=== PATIENT | male | born 1975 | race Caucasian/White ===

== ENCOUNTER 2020-04-27 11:19 | Emergency (ER) | payer OTHER, MEDICAID ==
[~2020-04-27] VITALS: Ht 182.9 cm; Wt 190.5 kg
[~2020-04-27 11:19] MED LIST: HYDROCODONE-AP1 EAC6 PO; NEURONTIN 300300 M1 PO; NORCO 5-325 TA1 EAC1 PO; PRINIVIL20 MG PO; PROZAC20 MG PO; WELLBUTRIN XL300 MG PO; ZOFRAN4 MG PO
[2020-04-27 11:58] LABS: ABSOLUTE BASOPHILS 0.1 thou/uL (0.0-0.2); ABSOLUTE EOSINOPHILS 0.1 thou/uL (0.0-0.7); ABSOLUTE MONOCYTES 0.6 thou/uL (0.0-1.2); ABSOLUTE NEUTROPHILS 5.3 thou/uL (1.6-8.1); BASOPHILS 0.9 %; EOSINOPHILS 1.2 %; HEMATOCRIT 44.8 % (42.0-52.0); HEMOGLOBIN 15.2 gm/dL (14.0-18.0); LYMPHOCYTES 25.3 %; MCH 30.7 pg (26.0-34.0); MCV 90.3 fL (80.0-100.0); MONOCYTES 7.2 %; MPV 9.2 fl. (7.2-11.1); NUCLEATED RBCS 0 /100WBC; PLATELET COUNT* 268 thou/uL (150-400); POLYS 65.4 %; RBC 4.96 mil/uL (4.50-6.00); RDW-CV 15.5 % (10.5-14.5)
[2020-04-27 12:05] LABS: CALCIUM 8.6 mg/dL (8.5-10.1); CREATININE 0.8 mg/dL (0.6-1.3); POTASSIUM 3.9 mmol/L (3.5-5.1)
[2020-04-27 12:10] LABS: ALBUMIN 3.3 g/dL (3.4-5.0); TOTAL BILIRUBIN 0.2 mg/dL (<0.1-1.0); TOTAL PROTEIN 7.1 g/dL (6.4-8.2)
[2020-04-27] MEDS ORDERED: VENTOLIN HFA 1818 GM INH (12:25)
[2020-04-27] MEDS ORDERED: TESSALON PERLE100 M1 PO (12:25)
[2020-04-27] MEDS ORDERED: PREDNISONE50 MG PO (12:25)
[2020-04-27 12:37] VITALS: BP 147/76
--- NOTE | 2020-04-29 10:33 | EKG ---
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 : 1975 Requested By: Robert Heart Order Number: [id number] MD: Mayank Vila Measurements Intervals [place] Rate: 87 P: 19 WA: 182 QRS: -24 QRSD: 95 T: 63 QT: 361 QTc: 435 Interpretive Statements Sinus rhythm Borderline left axis deviation Abnormal R-wave progression, early transition Baseline wander in lead(s) V6 Compared to ECG 03/08/2015 21:59:37 No significant changes Electronically Signed On 04-29-2020 10:33:15 CDT by Mayank Vila [email or web address] <ELECTRONICALLY SIGNED> By: Mayank Vila MD, [facility] 04/29/20 1033 1127 1127 Mayank Vila MD, [facility] /EPI
== END 2020-04-27 12:38 | disposition home or self-care (01) ==
LOC: M.ERS 11:19
PROVIDERS: Emergency Medicine Emergency Medical Services
DX: J40 Bronchitis, not specified as acute or chronic (principal); I10 Essential (primary) hypertension; R07.89 Other chest pain; R10.9 Unspecified abdominal pain; Z88.8 Allergy status to other drugs, medicaments and biological substances; Z79.899 Other long term (current) drug therapy